=== PATIENT | male | born 1975 | race Caucasian/White ===

== ENCOUNTER 2017-12-06 10:52 | Emergency (ER) | payer OTHER ==
[~2017-12-06] VITALS: Ht 177.8 cm; Wt 78.0 kg
[~2017-12-06 10:52] MED LIST: BUPROPION XL150 MG PO; CLINDAMYCIN HC300 MG PO; DIVALPROEX SOD250 M1 PO; DIVALPROEX SOD500 M1 PO; DOXYCYCLINE MO100 MG PO; FENOFIBRATE134 M1 PO; LEVOTHYROXINE25 MCG PO; LEVOTHYROXINE75 MCG PO; PERCOCET 5/31 TABLET PO; SYNTHROID150 MCG PO; VITAMIN B122500 MCG PO
[2017-12-06 11:29] LABS: HEMATOCRIT 46.9 % (38.0-50.0); HEMOGLOBIN 16.5 G/DL (12.5-16.6); MCH 32.2 PG (29.0-34.0); MCHC 35.2 G/DL (30.0-36.0); MCV 91.6 FL (86-99); PLATELET COUNT 284 K/uL (156-360); RBC DIS.WIDTH-CV 11.6 % (11.8-14.6); RBC DIS.WIDTH-SD 39.2 % (39-53); RED BLOOD COUNT 5.12 M/uL (4.00-5.50); WHITE BLOOD COUNT 14.7 K/uL (4.1-10.2)
[2017-12-06 11:35] LABS: ALBUMIN 4.6 g/dL (3.2-4.8); CHLORIDE 107 mEq/L (99-109); POTASSIUM 4.3 mEq/L (3.7-5.4); SODIUM 140 mEq/L (136-147)
[2017-12-06 11:38] LABS: GLUCOSE 145 mg/dL (70-99); TOTAL PROTEIN 7.3 g/dL (6.4-8.3)
[2017-12-06 11:40] LABS: TOTAL BILIRUBIN 0.5 mg/dL (0.0-1.0)
[2017-12-06 11:41] LABS: ALKALINE PHOSPHATASE 50 IU/L (3-129)
[2017-12-06 11:42] LABS: CREATININE 0.8 mg/dL (0.6-1.3); GFR ESTIMATE (CALCULATED) > 59 mL/min/ (58.99-99999)
[2017-12-06 11:43] LABS: AST (GOT) 15 IU/L (2-34); UREA NITROGEN (BUN) 11 mg/dL (9-23)
[2017-12-06 11:44] LABS: ALT (GPT) 26 IU/L (3-49)
[2017-12-06 12:30] LABS: LIPASE 16 U/L (1.0-51.0)
[2017-12-06 13:56] LABS: APPEARANCE CLEAR ((CLEAR)); BILIRUBIN NEGATIVE; BLOOD NEGATIVE; COLOR YELLOW ((YELLOW)); GLUCOSE (STRIP) NEGATIVE; KETONES 5; LEUKOCYTES NEGATIVE; NITRITE NEGATIVE; PROTEIN (STRIP) NEGATIVE; SPECIFIC GRAVITY 1.024 (1.000-1.030); UCUL ADDED? NO; UROBILINOGEN 0.2 MG/DL (0.2-1.0)
[2017-12-06] MEDS ORDERED: ULTRACET1 TABLET PO (15:14)
[2017-12-06] MEDS ORDERED: PROMETHAZINE HC25 M1 PO (15:14)
[2017-12-06] MEDS ORDERED: FLAGYL500 MG PO (15:14)
[2017-12-06] MEDS ORDERED: CIPRO500 MG PO (15:14)
[2017-12-06 15:39] VITALS: BP 118/71
== END 2017-12-06 15:40 | disposition home or self-care (01) ==
LOC: EME 10:52
DX: K57.32 Diverticulitis of large intestine without perforation or abscess without bleeding (principal); E86.0 Dehydration; E11.9 Type 2 diabetes mellitus without complications; E78.5 Hyperlipidemia, unspecified; E05.90 Thyrotoxicosis, unspecified without thyrotoxic crisis or storm; F41.9 Anxiety disorder, unspecified; F32.9 Major depressive disorder, single episode, unspecified; Z79.4 Long term (current) use of insulin; F17.200 Nicotine dependence, unspecified, uncomplicated; Z88.0 Allergy status to penicillin; Z88.1 Allergy status to other antibiotic agents
CPT/HCPCS: 74176; 80053; 81003; 82010; 82800; 83605; 83690; 85027; 99281; 99284; J7040

== ENCOUNTER 2018-05-09 21:57 | Emergency (ER) | payer OTHER ==
[~2018-05-09] VITALS: Ht 177.8 cm; Wt 77.7 kg
[~2018-05-09 21:57] MED LIST changes: +CIPRO500 MG PO; +FLAGYL500 MG PO; +PROMETHAZINE HC25 M1 PO; +ULTRACET1 TABLET PO
[2018-05-09 23:15] VITALS: BP 137/82
== END 2018-05-09 23:18 | disposition home or self-care (01) ==
LOC: EME 21:57
PROC: 2W3KX1Z Immobilization of Left Finger using Splint (ICD-10-PCS; principal; 2018-05-09)
DX: S63.615A Unspecified sprain of left ring finger, initial encounter (principal); W18.30XA Fall on same level, unspecified, initial encounter; Y93.89 Activity, other specified; Y92.812 Truck as the place of occurrence of the external cause; F17.200 Nicotine dependence, unspecified, uncomplicated; Z88.0 Allergy status to penicillin; Z88.1 Allergy status to other antibiotic agents; Z88.8 Allergy status to other drugs, medicaments and biological substances
CPT/HCPCS: 73130; 99281; 99284